=== PATIENT | female | born 1990 | race African-American/Black ===

== ENCOUNTER 2017-06-08 10:50 | Emergency (ER) | payer MEDICAID ==
[~2017-06-08] VITALS: Ht 165.1 cm; Wt 113.6 kg
[2017-06-08 10:52] VITALS: BP 126/76
== END 2017-06-08 12:06 | disposition home or self-care (01) ==
LOC: ED 11:29
DX: J20.9 Acute bronchitis, unspecified (principal)
CPT/HCPCS: 71020; 99284

== ENCOUNTER 2017-06-12 11:19 | Emergency (ER) | payer MEDICAID ==
[~2017-06-12] VITALS: Ht 165.1 cm; Wt 114.7 kg
[2017-06-12 11:23] VITALS: BP 132/77
[2017-06-12] MEDS ORDERED: Z PAC (11:47)
[2017-06-12] MEDS ORDERED: BENZ100C PO (11:47)
== END 2017-06-12 11:58 | disposition home or self-care (01) ==
LOC: ED 11:51
DX: J20.9 Acute bronchitis, unspecified (principal)
CPT/HCPCS: 99281

== ENCOUNTER 2017-07-02 12:00 | Emergency (ER) | payer MEDICAID ==
[~2017-07-02] VITALS: Ht 165.1 cm; Wt 117.2 kg
[~2017-07-02 12:00] MED LIST: BENZ100C PO; Z PAC
[2017-07-02 12:24] VITALS: BP 126/62
[2017-07-02] MEDS ORDERED: ONDANSETRON ODT 4 MG ONE (13:37)
[2017-07-02] MEDS ORDERED: ONDANSETRON ODT 4 MG PO ONE (14:00)
== END 2017-07-02 13:47 ==
LOC: ED 13:20
DX: J00 Acute nasopharyngitis [common cold] (principal); R11.0 Nausea; L50.9 Urticaria, unspecified; F17.200 Nicotine dependence, unspecified, uncomplicated
CPT/HCPCS: 71020; 99284; Q0162; Q0177